=== PATIENT | female | born 1950 | race Caucasian/White ===

== ENCOUNTER 2018-01-22 09:54 | Emergency (ER) | payer MEDICARE ==
[~2018-01-22] VITALS: Ht 172.7 cm; Wt 90.0 kg
[2018-01-22 10:01] VITALS: BP 152/68; PULSE 96; RESP 18; TEMP 98.7; O2SAT 95
--- NOTE | 2018-01-22 10:59 | PD ---
HPI Chief Complaint: Pain: Acute or Chronic Time Seen by Provider: 10:52 Travel History International Travel<30 days: No Contact w/Intl Traveler<30days: No Traveled to known affect area: No History of Present Illness HPI 67-year-old female presents emergency department status post trip and fall 2 days ago, after being tripped by her dog. Patient fell onto her right knee, and was seen in urgent care, and told she had a patellar fracture. Patient was placed in a hinged knee brace, and given tramadol. Patient is here now with increased swelling, and pain not controlled with tramadol. Patient has crutches. She is scheduled to see an orthopedic on Thursday. She has no known drug allergies. [facility] Social History Alcohol Use: Yes Tobacco Use: No Substance Use: No Allergies-Medications (Allergen,Severity, Reaction): Coded Allergies: No Known Allergies (Unverified , 01/22/18) Reported Meds & Prescriptions Reported Meds & Active Scripts Active Percocet (Oxycodone-Acetaminophen) 5-325 mg Tab 1 Tab PO Q6H PRN Review of Systems Except as stated in HPI: all other systems reviewed are Neg General / Constitutional: No: Fever Eyes: No: Visual changes HENT: No: Headaches Cardiovascular: No: Chest Pain or Discomfort Respiratory: No: Shortness of Breath Gastrointestinal: No: Abdominal Pain Genitourinary: No: Dysuria Musculoskeletal: Positive: Arthralgias, Limited ROM, Pain (See history of present illness per) Skin: No Rash Neurologic: No: Weakness Psychiatric: No: Depression Endocrine: No: Polydipsia Hematologic/Lymphatic: No: Easy Bruising Physical Exam Narrative GENERAL: Patient appears in mild to moderate distress. SKIN: Warm and dry. Normal color. Normal turgor. Abrasion noted on the right anterior knee. HEAD: Atraumatic. Normocephalic. EYES: Pupils equal and round. No scleral icterus. No injection or drainage. ENT: No nasal bleeding or discharge. Mucous membranes pink and moist. NECK: Trachea midline. No JVD. CARDIOVASCULAR: Regular rate and rhythm. RESPIRATORY: No accessory muscle use. Clear to auscultation. Breath sounds equal bilaterally. GASTROINTESTINAL: Abdomen soft, non-tender, nondistended. Hepatic and splenic margins not palpable. MUSCULOSKELETAL: Extremities without clubbing, cyanosis, or edema. No obvious deformities. Patient has generalized effusion of the right knee. Patient has tenderness with palpation to the anterior portion. There is no significant laxity appreciated however exam is limited secondary to patient's discomfort. Neurovascular exam is normal distally. NEUROLOGICAL: Awake and alert. No obvious cranial nerve deficits. Motor grossly within normal limits. Five out of 5 muscle strength in the arms and legs. Normal speech. PSYCHIATRIC: Appropriate mood and affect; insight and judgment normal. Data Data Last Documented VS Vital Signs Date Time Temp Pulse Resp B/P (MAP) Pulse Ox O2 Delivery O2 Flow Rate FiO2 01/22/18 10:01 98.7 96 18 152/68 (96) 95 Orders Orders Ketorolac Inj (Toradol Inj) (01/22/18 11:00) Oxycodone-Acetamin 5-325 Mg (Percocet (01/22/18 11:00) Splint Or Brace Apply/Monitor (01/22/18 10:57) [facility] Medical Decision Making Medical Screen Exam Complete: Yes Emergency Medical Condition: Yes Differential Diagnosis Trip and fall. Right patellar fracture. Inadequate pain control. Need for splint Narrative Course X-rays not repeated at this time Patient is given Percocet 5/325 p.o. now. Patient is given Toradol 60 mg IM Patient is placed in a knee immobilizer. Knee immobilizer is to remain in place until seen by orthopedic. Patient is to use crutches and limit weightbearing on the right leg. Patient is to ice the right knee as much as possible and keep it elevated. Patient is given Percocet 5/325 1 every 6 hours as needed pain #20. Patient can take [id number] ibuprofen or Aleve as well. Patient to follow with orthopedist next week as scheduled. Diagnosis Primary Impression: Fracture of right patella Qualified Codes: S82.001A - Unspecified fracture of right patella, initial encounter for closed fracture Referrals: Orthopedist Patient Instructions: Crutch Instructions (ED), General Instructions, Knee Immobilizer (DC) Additional Instructions: Patient is given Percocet 5/325 p.o. now. Patient is given Toradol 60 mg IM Patient is placed in a knee immobilizer. Knee immobilizer is to remain in place until seen by orthopedic. Patient is to use crutches and limit weightbearing on the right leg. Patient is to ice the right knee as much as possible and keep it elevated. Patient is given Percocet 5/325 1 every 6 hours as needed pain #20. Patient can take [id number] ibuprofen or Aleve as well. Patient to follow with orthopedist next week as scheduled. Med/Other Pt SpecificInfo: Prescription(s) given Scripts Oxycodone-Acetaminophen (Percocet) 5-325 mg Tab 1 TAB PO Q6H Y for PAIN, #20 TAB 0 Refills Prov: Stephen Snowden MD 01/22/18 Disposition: 01 DISCHARGE HOME Condition: Stable Jesus Fish Jan 22, 2018 10:59
[2018-01-22] MEDS ORDERED: KETOROLAC TROMETHAMINE 60 MG/2 ML (IM) VIAL IM ONE (11:00)
[2018-01-22] MEDS ORDERED: oxyCODONE/ACETAMINOPHEN 5 MG/325 MG TAB PO ONE (11:00)
[2018-01-22] MEDS ORDERED: PERC5TAB12 PO (11:00)
== END 2018-01-22 11:46 | disposition home or self-care (01) ==
LOC: NEPD 09:54
DX: S82.001A Unspecified fracture of right patella, initial encounter for closed fracture (principal); W01.0XXA Fall on same level from slipping, tripping and stumbling without subsequent striking against object, initial encounter
CPT/HCPCS: 96372; 99283; J1885; L1830